=== PATIENT | male | born 1970 | race Caucasian/White ===

== ENCOUNTER 2019-07-26 20:22 | Observation (INO) ==
[2019-07-26 21:17] LABS: Basophils # 0.1 K/mcL (0.0-0.2); Basophils % 0.4 %; Eosinophils # 0.3 K/mcL (0.0-0.6); Eosinophils % 2.3 %; Hematocrit 45.8 % (37.5-50.1); Hemoglobin 15.7 g/dL (12.9-16.9); Immature Granulocytes % 0.4 % (0-4); Lymphocytes # 3.3 K/mcL (0.6-4.6); Lymphocytes % 28.1 %; Mean Corpuscular HGB Conc 34.3 g/dL (31.6-35.5); Mean Corpuscular Hemoglobin 29.6 pg (28.0-33.3); Mean Corpuscular Volume 86.4 fL (83.0-100.0); Mean Platelet Volume 10.1 fL (9.4-12.4); Monocytes # 0.9 K/mcL (0.0-1.3); Monocytes % 7.6 %; Neutrophils # 7.1 K/mcL (1.6-8.9); Platelet Count 223 K/mcL (140-400); Red Cell Distribution Width 12.7 % (11.5-14.5); Segmented Neutrophils % 61.2 %; White Blood Count 11.6 K/mcL (4.3-11.1)
[2019-07-26 21:24] LABS: Prothrombin Time 11.4 Seconds (9.4-12.1)
--- NOTE | 2019-07-26 21:24 | Emergency Department Note ---
Disposition Clinical Impression: Right leg numbness Chest pain Qualifiers: Chest pain type: other chest pain Qualified Code(s): R07.89 - Other chest pain; R07.8 - Other chest pain Disposition: Admitted As Inpatient Condition: Fair Referrals: Bertrand Smith DO [Primary Care Provider] - Forms: ED Satisfaction Letter Time of Disposition: 22:57 Chest Pain HPI - General Chief Complaint: ED Chest Pain Stated Complaint: CP, HX, RLE Numb/Cold Time Seen by Provider: 07/26/19 20:52 Source: patient Limitations: no limitations Vital Signs Reviewed: Yes Nursing Notes Reviewed: Yes - History of Present Illness HPI Narrative: Patient is a 48-year-old male with history of coronary artery disease who presents with concerns of 2 days of left-sided chest pain as well as 2 weeks of intermittent right-sided leg numbness and coolness. Patient states that the chest pain began primarily yesterday, he describes it as left-sided, dull in nature with intermittent episodes of sharp stabbing symptoms. He does state that it is increased upon exertion. He describes the chest pain as "the same chest pain I had in the past had a heart attack and had stents placed". He denies any radiation of this chest pain or any improving features. He denies any associated diaphoresis, nausea or vomiting. He also has concerns today intermittent right-sided leg numbness and coolness, states that at least once per day he gets sudden onset of chills of the right leg, has to stand up and walk around to improve the blood flow. She states that during these episodes, the leg is cool to the touch. He denies ever having symptoms like this before prior to 2 weeks ago. Upon presentation to the emergency department today, he denies having any symptoms. He denies any history of blood clots, denies any associated shortness of breath. Severity scale (1-10): 8 - Related Data Home Medications Medication Instructions Recorded Confirmed Albuterol Sulfate [Proventil 2 puff IH Q4HR PRN 02/28/16 06/04/16 Inhaler] Budesonide/Formoterol 160/4.5 2 puff IH BIDR 06/04/16 06/04/16 [Symbicort 160/4.5] Gabapentin [Neurontin] 300 mg PO HS 06/04/16 06/04/16 Isosorbide MONOnitrate (24 HR) 30 mg PO DAILY 06/04/16 06/04/16 [Imdur] Metoprolol XL (24 HR) Succ [Toprol 100 mg PO DAILY 06/04/16 06/04/16 Xl] Pantoprazole Sodium [Protonix] 40 mg PO DAILY 06/04/16 06/04/16 Pantoprazole Sodium [Protonix] 40 mg PO DAILY 06/04/16 06/04/16 Previous Rx's Medication Instructions Recorded Aspirin 81 mg PO DAILY #30 tab.chew 03/01/16 Atorvastatin [Lipitor] 80 mg PO HS #30 tablet 03/01/16 Lisinopril [Zestril] 2.5 mg PO DAILY #30 tablet 03/01/16 Nitroglycerin 0.4 mg SL Q5MIN PRN #30 tab.subl 03/01/16 Ticagrelor [Brilinta] 90 mg PO BID #60 tablet 03/01/16 HYDROcodone/Acet 5/325 mg [[place] 1 tab PO Q6H PRN #4 tab 09/11/17 5-325 mg] Allergies Allergy/AdvReac Type Severity Reaction Status Date / Time No Known Allergies Allergy Verified 07/26/19 20:26 Review of Systems: REVIEW OF SYSTEMS: Constitutional: No F/C, No excessive fatigue Eye: No acute visual changes HENT: No sore throat, No rhinorrhea Resp: No SOB, No cough Cardio: Admits to chest pain, No palpitations GI: No abdominal pain, No nausea, No vomiting, No constipation, No diarrhea, No melena or hematochezia : No dysuria, No hematuria Musculoskeletal: No new joint swelling, No back pain Neuro: Admits to numbness, No weakness, No headaches Skin: No skin yellowing/jaundice, No pruritus Chest Pain PMH - Past Medical History Medical history: Reports: COPD, coronary artery disease, CVA, GERD, GI bleed, hyperlipidemia, hypertension, migraine, myocardial infarction, other Surgical history: Reports: angioplasty/stent, cholecystectomy Psychiatric history: Reports: no psych history - Social History Smoking Status: Current every day smoker Alcohol use: Reports: none Drug use: Reports: none Physical Exam PHYSICAL EXAM: Constitutional: Stated Age HENT: NC/AT, Mucous membranes moist Eyes: No scleral icterus, No photophobia, EOMI Neck: No nuchal rigidity, Supple, Trachea midline Cardiac: Regular rate and rhythm, S1 and S2 normal, no S3, S4, no murmurs gallops or rubs Thorax & Lungs: Clear to auscultation bilaterally, no wheezes, crackles or rhonchi, No chest tenderness Abdomen: Soft, non-tender, non-distended, no rebound or guarding Skin: Warm, dry, pink, No mottling Extremities: Bilateral DP and PT pulses intact, bilateral extremities appropriately warm to touch, No deformities Musculoskeletal: Normal tone Neurologic: CN II-XII intact, negative Romberg, sensory and motor strength fully intact in all extremities, no aphasia or dysarthria Psychiatric: appropriately oriented for baseline - General Limitations: no limitations General appearance: alert, in no apparent distress Course Vital Signs Temperature 98 F 07/26/19 20:24 Pulse Rate 83 07/26/19 20:24 Respiratory Rate 20 07/26/19 20:24 Blood Pressure 143/80 07/26/19 20:24 O2 Sat by Pulse Oximetry 95 07/26/19 20:24 Temperature 98 F 07/26/19 20:24 Pulse Rate 83 07/26/19 20:24 Respiratory Rate 20 07/26/19 20:24 Blood Pressure 143/80 07/26/19 20:24 O2 Sat by Pulse Oximetry 95 07/26/19 20:24 Oxygen Delivery Oxygen Delivery Room Air Chest Pain - MDM Narrative Medical decision making narrative: Patient is a 48-year-old male who presents with concerns of chest pain and right-sided leg coldness and numbness. On physical exam, he was overall, the nontoxic-appearing. Chest pain was mild and was nonexertional with palpation. Heart sounds are regular, lungs sounds are clear bilaterally. He had no asymmetric lower extremity edema. He did have bilateral DP and PT pulses were 2+, bilateral lower extremities appropriately warm to touch Workup was performed today was unremarkable and reassuring. EKG was unchanged from his baseline, troponin was negative. The remainder of his workup was unremarkable and reassuring. He was given aspirin in the emergency department. Based on his significant history of coronary artery disease as well as his exertional symptoms that are consistent with his prior IL, I do feel he wants hospitalization. - Medical Records Medical records reviewed: Yes I reviewed the patient's medical records. - Lab Data Lab results reviewed: Yes I reviewed the patient's lab results. Result diagrams: 07/26/19 20:35 07/26/19 20:35 Lab Results 07/26/19 07/26/19 07/26/19 Range/Units 20:35 20:35 20:35 WBC 11.6 H (4.3-11.1) K/mcL RBC 5.30 (4.19-5.50) M/mcL Hgb 15.7 (12.9-16.9) g/dL Hct 45.8 (37.5-50.1) % MCV 86.4 (83.0-100.0) fL MCH 29.6 (28.0-33.3) pg MCHC 34.3 (31.6-35.5) g/dL RDW 12.7 (11.5-14.5) % Plt Count 223 (140-400) K/mcL MPV 10.1 (9.4-12.4) fL Immature Gran % 0.4 (0-4) % Seg Neutrophils % 61.2 % Lymphocytes % 28.1 % Monocytes % 7.6 % Eosinophils % 2.3 % Basophils % 0.4 % Neutrophils # 7.1 (1.6-8.9) K/mcL Lymphocytes # 3.3 (0.6-4.6) K/mcL Monocytes # 0.9 (0.0-1.3) K/mcL Eosinophils # 0.3 (0.0-0.6) K/mcL Basophils # 0.1 (0.0-0.2) K/mcL PT 11.4 (9.4-12.1) Seconds INR 1.0 APTT 30.9 (26.0-36.0) Seconds Sodium 135 L (136-145) mEq/L Potassium 3.3 L (3.5-5.1) mEq/L Chloride 101 (98-107) mEq/L Carbon Dioxide 26 (23-29) mEq/L BUN 24 H (6-20) mg/dL Creatinine 1.01 (0.70-1.30) mg/dL Est GFR ( Amer) > 60 (> 60) Est GFR (Non-Af Amer) > 60 (> 60) BUN/Creatinine Ratio 24 (6-26) Glucose 118 H (70-105) mg/dL Calculated Osmolality 285 (280-300) Calcium 9.2 (8.6-10.3) mg/dL Troponin I < 0.03 (< 0.04) ng/mL - Radiology Data Radiology results reviewed: Yes I reviewed the patient's radiology results. - EKG Data EKG attestation: Yes I reviewed and interpreted this EKG. EKG shows normal: sinus rhythm Rate: normal Rhythm: NSR [place]/QRS: normal
[2019-07-26 21:26] LABS: Activated Partial Thrombo Time 30.9 Seconds (26.0-36.0)
[2019-07-26 21:38] LABS: BUN/Creatinine Ratio 24 (6-26); Blood Urea Nitrogen 24 mg/dL (6-20); Calcium 9.2 mg/dL (8.6-10.3); Carbon Dioxide 26 mEq/L (23-29); Chloride 101 mEq/L (98-107); Glucose 118 mg/dL (70-105); Osmolality,Calculated 285 (280-300); Potassium 3.3 mEq/L (3.5-5.1); Sodium 135 mEq/L (136-145); eGFR For African Americans > 60 (> 60); eGFR For Non-African Americans > 60 (> 60)
[2019-07-26 21:39] LABS: Troponin I < 0.03 ng/mL (< 0.04)
[2019-07-26] MEDS ORDERED: Aspirin Enteric Coated 81 MG Tablet PO ONE (23:39)
--- NOTE | 2019-07-27 00:38 | Internal Med History&Physical ---
Date of Encounter: 07/27/19 Time of Encounter: 00:34 Internal Medicine - H&P: HPI Chief complaint: chest pain Admitted From: Home Plans for Post Hospital Care: Home History of present illness: Mr. Traylor is a 48 year old male with past medical history of hypertension, hyperlipidemia, COPD on oxygen-dependent, severe CAD status post stenting 1 year ago on aspirin presented to the ED for chest pain. 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 Chest pain alleviated with rest and hydration, exacerbated with exertion associated with nausea, otherwise no fever, chills, vomiting, shortness of breath, abdominal pain, diarrhea. Personally reviewed patient's past medica l, surgical, family and social history. 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 CODE STATUS full code Past Med Surg Social Fam HX - Past Medical History Medical history: COPD, coronary artery disease, CVA, GERD, GI bleed, hyperlipidemia, hypertension, migraine, myocardial infarction, other Additional medical history: bells palsy Psychiatric history: no psych history - Past Surgical History Surgical History: angioplasty/stent, cholecystectomy Additional surgical history: cardiac stents x3 - Social History Smoking Status: Current every day smoker Smokeless Tobacco Status: No Alcohol use: none Drug use: none - Family History Mother Adopted: No Family Member Ethnicity: Non- Living Status: Still Living Hx Family Cardiac Disorders: No Hx Family Respiratory Disorders: No Hx Family Cancer: Yes (cyst on ovaries) Hx Family GI Disorders: No Hx Family Endocrine Disorder: No Hx Family Neuromuscular Disorders: No Hx Family Neurologic Disorders: No Hx Family HEENT Disorders: No Hx Family Autoimmune Disorders: No Internal Medicine - H&P: Meds Albuterol Sulfate [Proventil Inhaler] 2 puff IH Q4-6H PRN 02/28/16 [History] Aspirin 81 mg PO DAILY #30 tab.chew 03/01/16 [Rx] Budesonide/Formoterol 160/4.5 [Symbicort 160/4.5] 2 puff IH BIDR 06/04/16 [History] Pantoprazole Sodium [Protonix] 40 mg PO DAILY 06/04/16 [History] Valsartan/Hydrochlorothiazide [Diovan Hct 160-12.5 mg Tab] 1 tab PO DAILY 07/26/19 [History] Allergy/AdvReac Type Severity Reaction Status Date / Time No Known Allergies Allergy Verified 07/26/19 22:57 All Systems PM: A 10-system review of systems was performed and is negative for pertinent findings except as documented above in the HPI. Review of systems: General: No unintentional weightloss, No fever Head: No headahce, No injury. Ears: No discharge, No earache Eyes: No drainage, No eye pain Mouth and Throat: No new ulcers, No pain Nose and Sinus: No new congestion, No pain, Respiratory: No cough, No sputum production, No dyspnea Cardiovascular: + chest pain, No palpitations. Gastrointestinal: + nausea, No vomiting. No abdominal pain. Genital Tract: No discharge, No pain Urinary Tract: No dysuria, No discharge. MSK: No new/worsening joint pain, No new/worsening muscle ache. Endocrine: No cold intolerance, No polyuria Psychological: No suicidal, No homocidal ideation. - Constitutional Vitals: Temp Pulse Resp BP Pulse Ox 97.8 F 75 19 142/88 92 07/27/19 00:20 07/27/19 00:20 07/27/19 00:20 07/27/19 00:20 07/27/19 00:20 Exam: General Appearance: Appearing as age, well-nourished in mild acute distress. Head: Atraumatic normocephalic Skin: Normal texture, normal turgor, warm, dry. Eyes: Conjunctivae not pale with no erythema, drainage, or ulcers. Anicteric. Neck: No Lymphadenopathy in the anterior/posterior cervical chain. No thyromegaly, masses or ulcers. Trachea midline. Heart: RRR, no murmurs. Capillary refill 3 seconds Lungs: No accessory muscle usage, lungs clear to auscultation bilaterally, no wheezes or crackles. Extremities: No pitting edema, No clubbing, No cyanosis. Abdomen: Morbid obese, normoactive bowel sounds. non-tender to palpation, no hepatomegally. No guarding. Neuro: AOx3 with no new sensory loss or focal deficits. MSK: Strength 5/5 Upper extremity equal bilaterally. Strength 5/5 Lower extremity equal bilaterally. Left ankle swelling> right with no erythema or tenderness. No pain with passive ROM Internal Med - H&P Results - Labs CBC & Chem 7: 07/27/19 01:25 07/27/19 01:25 Labs: Short CBC 07/26/19 Range/Units 20:35 WBC 11.6 H (4.3-11.1) K/mcL Hgb 15.7 (12.9-16.9) g/dL Hct 45.8 (37.5-50.1) % Plt Count 223 (140-400) K/mcL Neutrophils # 7.1 (1.6-8.9) K/mcL BMP 07/26/19 20:35 Sodium 135 L Potassium 3.3 L Chloride 101 Carbon Dioxide 26 BUN 24 H Creatinine 1.01 Glucose 118 H Calcium 9.2 Cardiac Enzymes 07/26/19 Range/Units 20:35 Troponin I < 0.03 (< 0.04) ng/mL - Impressions ITS Impressions Chest X-Ray 07/26/19 20:55 IMPRESSION: No radiographic evidence of acute cardiopulmonary disease. D/ / Shiva Charles / Shiva Charles Interpreting Provider: Shiva Charles - Summary of Assessment and Plan Summary of Assessment and Plan: 1.Atypical Chest pain: 2/3(Substernal/Alleviated with rest/Worsened with exertion) SABRINA Score: 4 My interpretaiton of EKG NSR with RAD with 1 AV block BB, Nitro, high intensity statin, Oxygen, ASA. Stress Test: Nuclear Stress Test Troponin, EKG q6hour, Cardiac monitoring. 2.Hypokalemia: Replaced Chronic medical disease: Hyperlipidemia: Continue home med Hypertension: Continue home med COPD: Continue home meds. DVT prophylaxis: Heparin Disposition: Likely less than 2 days - Time Spent With Patient Total time spent is greater than 37 minutes 50% in coordination of care (as documented) at patient's floor/unit and/or counseling patient: Greater than 35 minutes
[2019-07-27] MEDS ORDERED: Dextrose Gel 15 GM/37.5 ML TUBE PO PRN ×2 (00:45)
[2019-07-27] MEDS ORDERED: *HR* Dextrose 50 % in Water (Syg) 50 ML SYRINGE IVP PRN (00:45)
[2019-07-27] MEDS ORDERED: D5% in Water 1,000 ML IVC PRN (00:45)
[2019-07-27] MEDS ORDERED: Ondansetron 4 MG/2 ML VIAL IVP PRN (00:45)
[2019-07-27] MEDS ORDERED: Ringers Solution, Lactated 1,000 ML IVC SCH (00:45)
[2019-07-27] MEDS ORDERED: Naloxone 0.4 MG/ML INJ IVP PRN (00:45)
[2019-07-27] MEDS ORDERED: Ondansetron ODT 4 MG TAB.RAPDIS SL PRN (00:45)
[2019-07-27 01:40] LABS: Basophils % 0.4 %; Eosinophils # 0.3 K/mcL (0.0-0.6); Hematocrit 43.7 % (37.5-50.1); Hemoglobin 14.9 g/dL (12.9-16.9); Immature Granulocytes % 0.4 % (0-4); Lymphocytes # 3.2 K/mcL (0.6-4.6); Lymphocytes % 33.7 %; Mean Corpuscular HGB Conc 34.1 g/dL (31.6-35.5); Mean Corpuscular Hemoglobin 29.5 pg (28.0-33.3); Mean Corpuscular Volume 86.5 fL (83.0-100.0); Mean Platelet Volume 9.9 fL (9.4-12.4); Monocytes # 0.8 K/mcL (0.0-1.3); Monocytes % 8.2 %; Neutrophils # 5.2 K/mcL (1.6-8.9); Platelet Count 201 K/mcL (140-400); Red Blood Count 5.05 M/mcL (4.19-5.50); Red Cell Distribution Width 12.6 % (11.5-14.5); Segmented Neutrophils % 54.3 %; White Blood Count 9.5 K/mcL (4.3-11.1)
[2019-07-27 02:01] LABS: Alanine Aminotransferase 58 Units/L (7-52); Albumin 4.1 g/dL (3.5-5.7); Albumin/Globulin Ratio 1.6 (1.1-2.2); Alkaline Phosphatase 86 Units/L (34-104); Aspartate Amino Transferase 31 Units/L (13-39); BUN/Creatinine Ratio 27 (6-26); Bilirubin,Total 0.5 mg/dL (0.3-1.0); Blood Urea Nitrogen 25 mg/dL (6-20); Calcium 8.9 mg/dL (8.6-10.3); Carbon Dioxide 28 mEq/L (23-29); Chloride 102 mEq/L (98-107); Chol/HDL Ratio 6.7 (0-4.9); Cholesterol 187 mg/dL (< 200); Globulin 2.5 g/dL (2.4-3.5); Glucose 102 mg/dL (70-105); HDL Cholesterol 28 mg/dL (40-59); LDL Cholesterol,Calculated 94 mg/dL (0-99); Magnesium 2.1 mg/dL (1.6-2.6); Osmolality,Calculated 287 (280-300); Phosphorous 4.4 mg/dL (2.7-4.5); Potassium 3.4 mEq/L (3.5-5.1); Sodium 136 mEq/L (136-145); Total Protein 6.6 g/dL (6.4-8.9); Triglycerides 325 mg/dL (< 150); eGFR For African Americans > 60 (> 60); eGFR For Non-African Americans > 60 (> 60)
[2019-07-27 05:10] LABS: Bilirubin,Urine Negative (Negative); Blood,Urine Negative (Negative); Clarity,Urine Clear (Clear); Color,Urine Yellow (Yellow); Glucose,Urine (UA) Normal (Normal); Ketones,Urine Negative (Negative); Leukocyte Esterase,Urine Negative (Negative); Nitrite,Urine Negative (Negative); Protein,Urine Negative (Neg-Trace); Specific Gravity,Urine 1.017 (1.010-1.025); Urobilinogen,Urine Normal (Normal)
[2019-07-27 05:22] LABS: Amphetamine Screen,Urine Negative ng/mL (Cutoff=1000); Barbiturate Screen,Urine Negative ng/mL (Cutoff=200); Benzodiazepines Screen,Urine Negative ng/mL (Cutoff=200); Cannabinoid Screen,Urine Negative ng/mL (Cutoff = 50); Cocaine Screen,Urine Negative ng/mL (Cutoff= 300); Opiate Screen,Urine Negative ng/mL (Cutoff=300); Phencyclidine Screen,Urine Negative ng/mL (Cutoff=25)
[2019-07-27] MEDS: *HR* Heparin 5,000 UNIT/ML VIAL SQ SCH ×3 (05:33→22:16)
[2019-07-27 07:22] LABS: Estimated Average Glucose 123 mg/dl
[2019-07-27] MEDS: Budesonide/Formoterol 160/4.5 1 PUFF INH IH SCH ×2 (07:55→22:30)
[2019-07-27] MEDS: Tiotropium 18 MCG inhalation IH SCH (07:56)
[2019-07-27] MEDS ORDERED: Regadenoson 0.4 MG/5 ML SYRINGE IVP ONE (08:36)
[2019-07-27] MEDS: Aspirin 81 MG TAB.CHEW PO SCH (10:21)
[2019-07-27] MEDS: hydroCHLOROthiazide 25 MG TABLET PO SCH (10:21)
[2019-07-27] MEDS: Valsartan 160 MG TABLET PO SCH (10:22)
--- NOTE | 2019-07-27 12:35 | Internal Med Progress Note ---
Hospitalist Progress Note - Encounter Date of Encounter: 07/27/19 Time of Encounter: 11:10 - Subjective Interval History: Mr. Traylor is a 48 year old male with past medical history of hypertension, hyperlipidemia, COPD on oxygen-dependent, severe CAD status post stenting 1 year ago on aspirin presented to the ED for chest pain. 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 Chest pain alleviated with rest and hydration, exacerbated with exertion associated with nausea. He was admitted in the hospital and placed him on therapeutic recreation assistant. His serial troponin came back as negative . He denied any active CP now. - Exam Vitals: Temp Pulse Resp BP Pulse Ox 97.8 F 74 16 148/90 92 07/27/19 06:38 07/27/19 06:38 07/27/19 10:16 07/27/19 06:38 07/27/19 10:16 Exam: Gen: Alert, awake, Oriented to time,place and person Chest: Diminished breath sounds B/L, No wheezing, No crackles, No rales Heart: S1S2+ RRR No murmurs Abd: Soft, NT, BS +, No organomegaly Ext: No edema, pulses are palpable, No calf tenderness Neuro : No acute focal neuro deficits noticed Skin: No rash. - Assessment and Plan (1) Chest pain Current Visit: Yes Status: Acute Assessment and Plan: Serial trop x 3 negative No acute ischemic changes on EKG Since pt is high risk for ACS.. ordered nuclear stress test due to high BMI needs 2 days nuclear stress test cont ASA, Metoprolol, Valasrtan, Statin and SL nitro PRN (2) CAD (coronary artery disease) Current Visit: No Status: Acute Assessment and Plan: Resumed home medications (3) HTN (hypertension) Current Visit: Yes Status: Chronic Assessment and Plan: stable BP with current meds cont current regimen (4) Morbid obesity with BMI of 40.0-44.9, adult Current Visit: Yes Status: Acute Assessment and Plan: counseled to loose weight (5) Hyperlipemia Current Visit: No Status: Acute Assessment and Plan: on Lipitor (6) Tobacco abuse Current Visit: No Status: Chronic Assessment and Plan: Counseled to quit smoking placed on nicotine patch - Time Spent with Patient Total time spent is greater than 50% in coordination of care (as documented) at patient's floor/unit and/or counseling patient: Internal Medicine: Result - Labs CBC & Chem 7: 07/27/19 01:25 07/27/19 01:25 Labs: Short CBC 07/26/19 07/27/19 Range/Units 20:35 01:25 WBC 11.6 H 9.5 (4.3-11.1) K/mcL Hgb 15.7 14.9 (12.9-16.9) g/dL Hct 45.8 43.7 (37.5-50.1) % Plt Count 223 201 (140-400) K/mcL Neutrophils # 7.1 5.2 (1.6-8.9) K/mcL BMP 07/26/19 07/27/19 20:35 01:25 Sodium 135 L 136 Potassium 3.3 L 3.4 L Chloride 101 102 Carbon Dioxide 26 28 BUN 24 H 25 H Creatinine 1.01 0.92 Glucose 118 H 102 Calcium 9.2 8.9 Cardiac Enzymes 07/26/19 07/27/19 07/27/19 Range/Units 20:35 01:25 08:03 Troponin I < 0.03 < 0.03 < 0.03 (< 0.04) ng/mL Liver Function 07/27/19 Range/Units 01:25 Total Bilirubin 0.5 (0.3-1.0) mg/dL AST 31 (13-39) Units/L ALT 58 H (7-52) Units/L Alkaline Phosphatase 86 (34-104) Units/L Albumin 4.1 (3.5-5.7) g/dL Urine 07/27/19 Range/Units 04:59 Urine Color Yellow (Yellow) Urine Clarity Clear (Clear) Urine pH 6.0 (5.0-8.0) pH Units Ur Specific [place] 1.017 (1.010-1.025) Urine Protein Negative (Neg-Trace) mg/dL Urine Glucose (UA) Normal (Normal) mg/dL - ABG Interpretation ABG results: PT/INR, D-dimer PT 11.0 Seconds (9.4-12.1) 07/27/19 01:25 - Impressions Impressions Chest X-Ray 07/26/19 20:55 IMPRESSION: No radiographic evidence of acute cardiopulmonary disease. D/ / Shiva Charles / Shiva Charles Interpreting Provider: Shiva Charles Consult Discharge Plan - Plan Referrals: Bertrand Smith DO [Primary Care Provider] - (1) Chest pain Qualifiers: Chest pain type: other chest pain Qualified Code(s): R07.89 - Other chest pain; R07.8 - Other chest pain (2) CAD (coronary artery disease) Qualifiers: Coronary Disease-Associated Artery/Lesion type: three affiliated artery [place] vs. transplanted heart: three affiliated heart Associated angina: with unstable angina Qualified Code(s): I25.110 - Atherosclerotic heart disease of three affiliated coronary artery with unstable angina pectoris (3) HTN (hypertension) Qualifiers: Hypertension type: essential hypertension Qualified Code(s): I10 - Essential (primary) hypertension (5) Hyperlipemia Qualifiers: Hyperlipidemia type: unspecified Qualified Code(s): E78.5 - Hyperlipidemia, unspecified
--- NOTE | 2019-07-27 17:39 | Electrocardiograph Report ---
[address] [place], [place] [address] Test Date: 2019-07-26 Pat Name: Ino Traylor Department: EXAM8 Room: 3B48 Gender: M Appliance Installer: : [id number] Requested By: [id number] Order Number: [id number] Reading MD: Manuela Dawkins Measurements Intervals [place] Rate: 80 P: 46 NM: 170 QRS: -52 QRSD: 103 T: 35 QT: 408 QTc: 471 Interpretive Statements Sinus rhythm Anterolateral infarct, age indeterminate Electronically Signed On 07-27-2019 17:37:13 EDT by Manuela Dawkins
[2019-07-28] MEDS: *HR* Heparin 5,000 UNIT/ML VIAL SQ SCH (06:13)
[2019-07-28] MEDS: Budesonide/Formoterol 160/4.5 1 PUFF INH IH SCH (08:03)
[2019-07-28] MEDS: Tiotropium 18 MCG inhalation IH SCH (08:05)
[2019-07-28] MEDS ORDERED: Nicotine 21 MG PATCH.TD24 TD SCH (09:00)
[2019-07-28] MEDS: Valsartan 160 MG TABLET PO SCH (09:13)
[2019-07-28] MEDS: hydroCHLOROthiazide 25 MG TABLET PO SCH (09:13)
[2019-07-28] MEDS: Aspirin 81 MG TAB.CHEW PO SCH (09:13)
[2019-07-28 10:51] VITALS: BP 132/76
--- NOTE | 2019-07-28 13:28 | Discharge Summary ---
- NOTES TO OUTPATIENT PROVIDER Notes to Outpatient Provider: f/u with PCP in one week. f/u with Cardiology in 1-2 weeks. Medication changes: Metoprolol 12.5mg BID, Lipitor 20mg HS. Please quit smoking. Date of Encounter: 07/28/19 Time of Encounter: 13:24 - Discharge Diagnosis (1) Chest pain Priority: Primary Status: Acute Qualifiers: Chest pain type: unspecified Qualified Code(s): R07.9 - Chest pain, unspecified (2) CAD (coronary artery disease) Priority: Secondary Status: Acute Qualifiers: Coronary Disease-Associated Artery/Lesion type: [place] artery [place] vs. transplanted heart: [place] heart Associated angina: with unstable angina Qualified Code(s): I25.110 - Atherosclerotic heart disease of [place] coronary artery with unstable angina pectoris (3) HTN (hypertension) Priority: Secondary Status: Chronic Qualifiers: Hypertension type: essential hypertension Qualified Code(s): I10 - Essential (primary) hypertension (4) Morbid obesity with BMI of 40.0-44.9, adult Priority: Secondary Status: Acute (5) Hyperlipemia Priority: Secondary Status: Acute Qualifiers: Hyperlipidemia type: unspecified Qualified Code(s): E78.5 - Hyperlipidemia, unspecified (6) Tobacco abuse Priority: Secondary Status: Chronic Hospital course: Mr. Traylor is a 48 year old male with past medical history of hypertension, hyperlipidemia, COPD on oxygen-dependent, severe CAD status post stenting 1 year ago on aspirin presented to the ED for chest pain. 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 Chest pain alleviated with rest and hydration, exacerbated with exertion associated with nausea. He was admitted in the hospital and placed him on bi architect. His serial troponin came back as negative . His EKG did not show any acute ischemic changes. He did go for nuclear stress test, which came bask as negative for ischemia. Large sized, moderate to severe intensity, fixed perfusion defect throughout the inferior and adjacent inferoseptal/inferolateral segments consistent with a prior MA. Perfusion imaging was negative for ischemia. He denied any active CP now. I did trauma counsellor the patient to quit smoking. I started him on metoprolol and lipitor. Will discharge him home in a stable condition today. - Time Spent with Patient Total time spent providing and/or coordinating discharge services: - Discharge Medications Prescriptions: New Atorvastatin Calcium [Lipitor] 20 mg PO HS #30 tablet Metoprolol [Lopressor] 12.5 mg PO BID #30 tablet Nicotine Patch [Nicoderm] 21 mg TD DAILY #30 patch.td24 Continued Albuterol Sulfate [Proventil Inhaler] 2 puff IH Q4-6H PRN PRN Reason: Shortness Of Breath Aspirin 81 mg PO DAILY #30 tab.chew Budesonide/Formoterol 160/4.5 [Symbicort 160/4.5] 2 puff IH BIDR Pantoprazole Sodium [Protonix] 40 mg PO DAILY Valsartan/Hydrochlorothiazide [Diovan Hct 160-12.5 mg Tab] 1 tab PO DAILY Home Medications: Albuterol Sulfate [Proventil Inhaler] 2 puff IH Q4-6H PRN 02/28/16 [History] Aspirin 81 mg PO DAILY #30 tab.chew 03/01/16 [Rx] Budesonide/Formoterol 160/4.5 [Symbicort 160/4.5] 2 puff IH BIDR 06/04/16 [History] Pantoprazole Sodium [Protonix] 40 mg PO DAILY 06/04/16 [History] Valsartan/Hydrochlorothiazide [Diovan Hct 160-12.5 mg Tab] 1 tab PO DAILY 07/26/19 [History] Atorvastatin Calcium [Lipitor] 20 mg PO HS #30 tablet 07/28/19 [Rx] Metoprolol [Lopressor] 12.5 mg PO BID #30 tablet 07/28/19 [Rx] Nicotine Patch [Nicoderm] 21 mg TD DAILY #30 patch.td24 07/28/19 [Rx] Allergies/Adverse Reactions: Allergy/AdvReac Type Severity Reaction Status Date / Time No Known Allergies Allergy Verified 07/26/19 22:57 Date of admission: 07/26/19 23:46 Primary care physician: Bertrand Smith, DO - Constitutional Vitals: Temp Pulse Resp BP Pulse Ox 98.1 F 66 16 132/76 91 07/28/19 10:44 07/28/19 10:44 07/28/19 10:44 07/28/19 10:44 07/28/19 10:44 General appearance: Present: cooperative, A&O X 3, no acute distress, answers questions appropriately Exam: Gen: Alert, awake, Oriented to time,place and person Chest: Diminished breath sounds B/L, No wheezing, No crackles, No rales Heart: S1S2+ RRR No murmurs Abd: Soft, NT, BS +, No organomegaly Ext: No edema, pulses are palpable, No calf tenderness Neuro : No acute focal neuro deficits noticed Skin: No rash. - Patient Status Disposition: Home, Self-Care Condition: Good Overall status at discharge: patient is back to baseline - Discharge Instructions Follow Up With: Bertrand Smith DO [Primary Care Provider] - 08/08/19 12:00 pm Akil Moctezuma MD [Partnered Physician] - - Diet and Activity Activity: increase activity as tolerated Diet: low salt diet
== END 2019-07-28 14:02 | disposition home or self-care (01) ==
LOC: 3BNU 20:22 → EMEROOARM 20:22 → 3BNU 07-27 00:14
PROVIDERS: ADMIT Internal Medicine; ATTEND Internal Medicine

== ENCOUNTER 2021-11-18 18:16 | Inpatient (IN) ==
[2021-11-18 19:30] LABS: Basophils # 0.1 K/mcL (0.0-0.2); Basophils % 0.5 %; Eosinophils % 0.2 %; Hemoglobin 18.8 g/dL (12.9-16.9); Immature Granulocytes % 1.7 % (0-4); Lymphocytes # 1.9 K/mcL (0.6-4.6); Lymphocytes % 14.7 %; Mean Corpuscular HGB Conc 34.1 g/dL (31.6-35.5); Mean Corpuscular Hemoglobin 29.1 pg (28.0-33.3); Mean Corpuscular Volume 85.2 fL (83.0-100.0); Mean Platelet Volume 9.7 fL (9.4-12.4); Monocytes # 0.5 K/mcL (0.0-1.3); Monocytes % 3.5 %; Neutrophils # 10.4 K/mcL (1.6-8.9); Platelet Count 293 K/mcL (140-400); Red Blood Count 6.47 M/mcL (4.19-5.50); Red Cell Distribution Width 12.4 % (11.5-14.5); Segmented Neutrophils % 79.4 %; White Blood Count 13.1 K/mcL (4.3-11.1)
[2021-11-18 19:33] LABS: Hematocrit 55.1 % (37.5-50.1)
[2021-11-18 20:03] LABS: BUN/Creatinine Ratio 25 (6-26); Blood Urea Nitrogen 20 mg/dL (6-20); Calcium 9.4 mg/dL (8.6-10.3); Carbon Dioxide 25 mEq/L (23-29); Chloride 96 mEq/L (98-107); Glucose 208 mg/dL (70-105); Osmolality,Calculated 283 (280-300); Potassium 4.2 mEq/L (3.5-5.1); Sodium 132 mEq/L (136-145); Troponin I 0.97 ng/mL (< 0.04); eGFR For African Americans > 60 (> 60); eGFR For Non-African Americans > 60 (> 60)
[2021-11-18] MEDS ORDERED: *HR* Heparin 5,000 UNIT/ML VIAL IVP ONE (20:40)
[2021-11-18] MEDS ORDERED: *HR* Heparin 5,000 UNIT/ML VIAL IVP PRN ×2 (20:40)
[2021-11-18] MEDS ORDERED: Heparin 25,000UNIT/250ML 1/2NS 25,000 UNIT/250 ML IV.SOLN IVC SCH (20:45)
[2021-11-18] MEDS ORDERED: Melatonin 3 MG TABLET PO PRN (21:27)
[2021-11-18] MEDS ORDERED: Naloxone 0.4 MG/ML INJ IVP PRN (21:27)
[2021-11-18] MEDS ORDERED: Ondansetron 4 MG/2 ML VIAL IVP PRN (21:27)
[2021-11-18] MEDS ORDERED: *HR* HYDROcodone/Acet 5/325 mg TABLET PO PRN (21:27)
[2021-11-18] MEDS ORDERED: Aspirin Enteric Coated 325 MG Tablet PO ONE (21:31)
[2021-11-18 22:49] LABS: Heparin anti-factor XA UFH 0.24 IU/mL (0.30-0.70); INR 1.1; Prothrombin Time 12.5 Seconds (9.4-12.1)
[2021-11-18 23:08] LABS: Chol/HDL Ratio 6.1 (0-4.9)
[2021-11-18 23:55] LABS: Adenovirus Not Detected (Not Detect); Bordetella Pertussis Not Detected (Not Detect); Chlamydophila pneumoniae Not Detected (Not Detect); Coronavirus 229E Not Detected (Not Detect); Coronavirus HKU1 Not Detected (Not Detect); Coronavirus NL63 Not Detected (Not Detect); Coronavirus OC43 Not Detected (Not Detect); Human Metapneumovirus Not Detected (Not Detect); Human Rhinovirus/Enterovirus Not Detected (Not Detect); Influenza A Subtype 2009 H1 Not Detected (Not Detect); Influenza B Not Detected (Not Detect); Mycoplasma pneumoniae Not Detected (Not Detect); Parainfluenza Virus 1 Not Detected (Not Detect); Parainfluenza Virus 2 Not Detected (Not Detect); Parainfluenza Virus 3 Not Detected (Not Detect); Parainfluenza Virus 4 Not Detected (Not Detect); Respiratory Syncytial Virus Not Detected (Not Detect); SARS-CoV-2 Not Detected (Not Detect)
[2021-11-19] MEDS: Ipratropium/Albuterol Neb 3 ML IH SCH ×6 (01:02→20:13)
[2021-11-19] MEDS ORDERED: Saliva Stimulant 44.3ml BOTTLE PO PRN (01:54)
[2021-11-19] MEDS ORDERED: Perflutren Lipid Microsphere 1.3 ML in 0.9 % Sodium Chloride 8.7 ML IVP PRN (01:54)
[2021-11-19] MEDS: Nicotine 14 MG PATCH.TD24 TD SCH (03:07)
[2021-11-19 03:17] LABS: Basophils # 0.1 K/mcL (0.0-0.2); Basophils % 0.4 %; Eosinophils # 0.2 K/mcL (0.0-0.6); Eosinophils % 1.1 %; Hematocrit 51.2 % (37.5-50.1); Hemoglobin 17.6 g/dL (12.9-16.9); Immature Granulocytes % 1.3 % (0-4); Lymphocytes # 3.9 K/mcL (0.6-4.6); Lymphocytes % 27.6 %; Mean Corpuscular HGB Conc 34.4 g/dL (31.6-35.5); Mean Corpuscular Hemoglobin 29.7 pg (28.0-33.3); Mean Corpuscular Volume 86.3 fL (83.0-100.0); Mean Platelet Volume 9.9 fL (9.4-12.4); Monocytes % 6.7 %; Platelet Count 276 K/mcL (140-400); Red Blood Count 5.93 M/mcL (4.19-5.50); Red Cell Distribution Width 12.4 % (11.5-14.5); Segmented Neutrophils % 62.9 %; White Blood Count 14.3 K/mcL (4.3-11.1)
[2021-11-19 03:34] LABS: Alanine Aminotransferase 84 Units/L (7-52); Albumin 3.9 g/dL (3.5-5.7); Albumin/Globulin Ratio 1.4 (1.1-2.2); Alkaline Phosphatase 105 Units/L (34-104); Aspartate Amino Transferase 41 Units/L (13-39); BUN/Creatinine Ratio 28 (6-26); Bilirubin,Total 0.6 mg/dL (0.3-1.0); Blood Urea Nitrogen 23 mg/dL (6-20); Calcium 8.8 mg/dL (8.6-10.3); Carbon Dioxide 28 mEq/L (23-29); Chloride 100 mEq/L (98-107); Globulin 2.8 g/dL (2.4-3.5); Glucose 150 mg/dL (70-105); Osmolality,Calculated 281 (280-300); Phosphorous 3.4 mg/dL (2.7-4.5); Potassium 3.8 mEq/L (3.5-5.1); Sodium 132 mEq/L (136-145); Total Protein 6.7 g/dL (6.4-8.9); eGFR For African Americans > 60 (> 60); eGFR For Non-African Americans > 60 (> 60)
[2021-11-19] MEDS ORDERED: Dextrose Gel 15 GM/37.5 ML TUBE PO PRN ×2 (05:16)
[2021-11-19] MEDS ORDERED: D5% in Water 1,000 ML IVC PRN (05:16)
[2021-11-19] MEDS ORDERED: *HR* Dextrose 50 % in Water (Syg) 50 ML SYRINGE IVP PRN (05:16)
[2021-11-19] MEDS: Budesonide/Formoterol 160/4.5 1 PUFF INH IH SCH ×2 (07:35→20:13)
[2021-11-19] MEDS: predniSONE 20 MG TABLET PO SCH (08:01)
[2021-11-19] MEDS: Furosemide 20 MG TABLET PO SCH (08:01)
[2021-11-19] MEDS: Aspirin 81 MG TAB.CHEW PO SCH (08:01)
[2021-11-19] MEDS: Chlorhexidine Rinse 15 ML MOUTHWASH MM SCH ×2 (08:01→19:39)
[2021-11-19] MEDS: carvediloL 6.25 MG TABLET PO SCH ×2 (08:01→17:12)
[2021-11-19] MEDS: Multivit/Ca/Min/Fe/FA 1 TAB TABLET PO SCH (08:01)
[2021-11-19] MEDS: Valsartan 160 MG TABLET PO SCH (08:08)
[2021-11-19 08:30] LABS: Estimated Average Glucose 189 mg/dl; Hemoglobin A1C 8.2 %
[2021-11-19] MEDS ORDERED: Adenosine 90 MG/30 ML MLS IV ONE (09:34)
[2021-11-19] MEDS ORDERED: *HR* Heparin 10,000 UNIT/10 ML VIAL ONE ×2 (12:37→14:21)
[2021-11-19] MEDS ORDERED: 0.9 % Sodium Chloride 2,000 ML ONE ×2 (12:37→14:21)
[2021-11-19] MEDS ORDERED: Heparin 1,000 UNITS/500 mL 500 ML ONE ×2 (12:37→14:21)
[2021-11-19] MEDS ORDERED: ISOVUE-370 200 ML INFUS..BTL ONE ×4 (12:37→14:21)
[2021-11-19] MEDS ORDERED: Nitroglycerin 1,000 MCG/5 ML VIAL IV ONE ×2 (12:38→14:21)
[2021-11-19] MEDS ORDERED: *HR* Midazolam HCl 2 MG/2 ML VIAL ONE ×2 (12:40→14:21)
[2021-11-19] MEDS ORDERED: *HR* FentaNYL (PF) 100 MCG/2 ML VIAL ONE ×2 (12:40→14:21)
[2021-11-19] MEDS ORDERED: Tirofiban 12.5 MG/250ML 12.5 MG/250 ML BAG ONE (13:38)
[2021-11-19] MEDS ORDERED: *HR* Ticagrelor 90 MG TABLET ONE (13:49)
[2021-11-19] MEDS ORDERED: Tirofiban 12.5 MG/250ML 12.5 MG/250 ML BAG IVC SCH (14:30)
[2021-11-19] MEDS: Isosorbide MONOnitrate (24 HR) 30 MG TAB.ER.24H PO SCH (15:01)
[2021-11-19] MEDS: Acetaminophen 325 MG TABLET PO PRN (19:38)
[2021-11-19] MEDS: *HR* Ticagrelor 90 MG TABLET PO SCH (19:39)
[2021-11-20] MEDS: Ipratropium/Albuterol Neb 3 ML IH SCH ×3 (00:38→07:37)
[2021-11-20 01:33] LABS: Hematocrit 47.3 % (37.5-50.1); Hemoglobin 16.2 g/dL (12.9-16.9); Mean Corpuscular HGB Conc 34.2 g/dL (31.6-35.5); Mean Corpuscular Hemoglobin 30.2 pg (28.0-33.3); Mean Corpuscular Volume 88.1 fL (83.0-100.0); Mean Platelet Volume 9.8 fL (9.4-12.4); Platelet Count 243 K/mcL (140-400); Red Blood Count 5.37 M/mcL (4.19-5.50); Red Cell Distribution Width 12.4 % (11.5-14.5); White Blood Count 16.6 K/mcL (4.3-11.1)
[2021-11-20 01:53] LABS: BUN/Creatinine Ratio 27 (6-26); Blood Urea Nitrogen 22 mg/dL (6-20); Calcium 8.5 mg/dL (8.6-10.3); Carbon Dioxide 28 mEq/L (23-29); Chloride 99 mEq/L (98-107); Glucose 180 mg/dL (70-105); Osmolality,Calculated 286 (280-300); Potassium 3.4 mEq/L (3.5-5.1); Sodium 134 mEq/L (136-145); eGFR For African Americans > 60 (> 60); eGFR For Non-African Americans > 60 (> 60)
[2021-11-20] MEDS: Nicotine 14 MG PATCH.TD24 TD SCH (03:55)
[2021-11-20] MEDS: Acetaminophen 325 MG TABLET PO PRN (04:04)
[2021-11-20 06:52] VITALS: BP 141/76; PULSE 74; TEMP 97.8
[2021-11-20] MEDS: Budesonide/Formoterol 160/4.5 1 PUFF INH IH SCH (07:38)
[2021-11-20] MEDS: Chlorhexidine Rinse 15 ML MOUTHWASH MM SCH (08:17)
[2021-11-20] MEDS: carvediloL 6.25 MG TABLET PO SCH (08:23)
[2021-11-20] MEDS: Aspirin 81 MG TAB.CHEW PO SCH (08:23)
[2021-11-20] MEDS: *HR* Ticagrelor 90 MG TABLET PO SCH (08:23)
[2021-11-20] MEDS: Valsartan 160 MG TABLET PO SCH (08:23)
[2021-11-20] MEDS: Multivit/Ca/Min/Fe/FA 1 TAB TABLET PO SCH (08:24)
[2021-11-20] MEDS: Isosorbide MONOnitrate (24 HR) 30 MG TAB.ER.24H PO SCH (08:24)
[2021-11-20] MEDS: Furosemide 20 MG TABLET PO SCH (08:24)
[2021-11-20] MEDS: predniSONE 20 MG TABLET PO SCH (08:24)
[2021-11-20 10:32] VITALS: O2SAT 97
== END 2021-11-20 09:35 | disposition home or self-care (01) | DRG 174 ==
LOC: SUATTDRO → EMEROOARM 18:16 → SUATTDRO 23:57 → 2ANU 23:57
PROVIDERS: ADMIT Internal Medicine; ATTEND Internal Medicine